=== PATIENT | male | born 1980 | race Caucasian/White ===

== ENCOUNTER → 2016-10-27 | Outpatient (CLI) | payer BC ==
--- NOTE | 2016-10-27 15:50 | DIAGNOSTIC IMAGING REPORT ---
THYROID ULTRASOUND CLINICAL HISTORY: Diffuse enlargement of thyroid gland. Fatigue. COMPARISON STUDY: None. TECHNIQUE: Sonography of the thyroid gland was performed. FINDINGS: The right thyroid lobe measures 4.8 x 1.5 x 2.1 cm and the left measures 5.5 x 1.3 x 1.5 cm. The gland is homogeneous and no thyroid nodules are identified. The isthmus measures 0.3 cm in thickness. IMPRESSION: Unremarkable thyroid ultrasound. Top normal thyroid gland size with no thyroid nodules. Electronically signed by: Franck Jaramillo M.D. 10/27/2016 3:49 PM Dictated Date/Time: 10/27/2016 3:48 PM
== END | disposition home or self-care (01) ==
LOC: C.ULTR 15:26
PROVIDERS: ATTEND Nurse Practitioner Family
DX: R53.83 Other fatigue (principal); R19.7 Diarrhea, unspecified; E04.9 Nontoxic goiter, unspecified